=== PATIENT | male | born 1930 | race Caucasian/White ===

== ENCOUNTER 2018-07-12 23:22 | Inpatient (IN) | payer OTHER ==
--- NOTE | 2018-07-12 23:48 | PDOC ---
History of Present Illness - General Stated Complaint: FAILURE TO THRIVE Time Seen by Provider: 07/12/18 23:47 - History of Present Illness Initial Comments: 07/13/18 02:01 The patient is an 88 year old male with a history of Dementia, HTN, Hypothyroid who presents for evaluation of failure to thrive. The patient is accompanied by family who assist in providing the history. They report that the patient has been getting progressively weaker over the past 1 month and over the past few days he has refused to eat or take his medications and become more altered. They note that he has been bedbound for over a month and has developed multiple pressure ulcers as well. They state that he also fell over a week ago but was not evaluated at that time. The patient is non-verbal at baseline and ROS is unobtainable. Past History - Past Medical History Allergies/Adverse Reactions: Allergies Allergy/AdvReac Type Severity Reaction Status Date / Time No Known Allergies Allergy Verified 07/13/18 00:02 Review of Systems - Review of Systems Able to Perform ROS?: No (Dementia) *Physical Exam - Physical Exam Comments: 07/13/18 02:04 General Appearance: Nourished. In Apparent Distress HEENT: No Pharyngeal Erythema, Tonsillar Exudate, Tonsillar Erythema Neck: No Cervical Lymphadenopathy Respiratory/Chest: Lungs Clear, Normal Breath Sounds. No Crackles, Rales, Rhonchi, Wheezing Cardiovascular: Regular Rhythm, Regular Rate. No Murmur, Gallops, Rubs Gastrointestinal/Abdominal: Normal Bowel Sounds, Soft. No Guarding, Rebound, Tenderness Musculoskeletal: No CVA Tenderness Extremity: Multiple pressure ulcers noted on exam to the bilateral hips. Edematous right upper extremity. Normal Capillary Refill Integumentary: Normal Color, Dry, Warm Neurologic: Minimally responsive. Not following commands. ED Treatment Course - LABORATORY CBC & Chemistry Diagram: 07/14/18 07:50 07/14/18 07:50 Medical Decision Making - Medical Decision Making 07/13/18 02:12 The patient is an 88 year old male with a history of Dementia, HTN, Hypothyroid who presents for evaluation of failure to thrive. The patient appears extremely ill on exam and given his history and physical exam, it is likely the patient's symptoms are due to an infectious etiology. We will obtain a cbc, cmp , troponin, ua, chest plain film, blood cultures, lactate, vbg, ekg to evaluate further. We had a discussion with the patient's son Cachorro Quiñones who is the health care proxy over the phone and has made the patient DNR/DNI and no central line or pressors. Dr. Avina was present as second witness to confirm wishes with the health care proxy. They would like to continue iv fluids and antibiotics. We will treat with vanc, zosyn and iv fluids. We will continue to closely monitor and reassess while here in the ED. The patient will likely require admission for further management. The overall prognosis is poor. 07/13/18 05:06 CBC is unremarkable. CMP demonstrates an elevated creatinine. Troponin is elevated to 0.18. Lactate is elevated to 7.5. The patient is liekly septic from his pressure ulcer wounds. Given the patient's overall clinical picture, the prognosis is poor. We will continue to treat with iv fluids and antibiotics. Multiple attempts made to reach the health care proxy with no success to update them on the patient's condition. We discussed the case with the admitting team who accepted the patient for admission. *DC/Admit/Observation/Transfer Diagnosis at time of Disposition: Sepsis Qualifiers: Sepsis type: sepsis due to unspecified organism Qualified Code(s): A41.9 - Sepsis, unspecified organism Cellulitis Qualifiers: Site of cellulitis: unspecified site Qualified Code(s): L03.90 - Cellulitis, unspecified Hypotension Qualifiers: Hypotension type: unspecified hypotension type Qualified Code(s): I95.9 - Hypotension, unspecified - Discharge Dispostion Condition at time of disposition: Stable Decision to Admit order: Yes - Referrals - Patient Instructions - Post Discharge Activity
[2018-07-13 00:01] VITALS: BMI 16.7
[2018-07-13] MEDS ORDERED: VANCOMYCIN 1 GRAM (PRE-DOCKED) 1,000 MG/250 ML BAG IVPB ONE ×2 (01:01→02:06)
[2018-07-13] MEDS ORDERED: PIPERACILLIN/TAZOB 3.375 GM 3.375 GM in DEXTROSE 5%-WATER - 50 ML IVPB ONE (01:02)
--- NOTE | 2018-07-13 01:10 | PDOC ---
Attending Attestation - Resident Resident Name: Isak Stewart - ED Attending Attestation I have performed the following: I have examined & evaluated the patient, The case was reviewed & discussed with the resident, I agree w/resident's findings & plan, Exceptions are as noted - Physicial Exam PE: 07/13/18 01:07 awake dry mucous membranes, lungs clear bilaterally, heart tachycardia, abd soft nt. skin ? large foul smelling necrotic left hip eschar, 5 x 5 inches. right hip ulcer necrotis. right upper ext swollen, edematous, bilat inner knee skin breakdown. nuero, nonverbal, not following commands. - Medical Decision Making 07/13/18 01:09 differential: renal failure, cva, or sepsis from necrotic hip wound, uti pna, electrolyte abnormality anemia. pt is showing signs of septic shock hypotensive. will d/w grandson and son ( not present) via phone regarding goals of care. will treat with broad spectrum abx, and fluid rescusitation. ekg cxr septic dejan. <Charis Avina - Last Filed: 07/13/18 01:06> - HPI HPI: 07/13/18 01:12 The patient is a 88 year old male with a significant PMH of HTN, dementia, and hyperthyroidism who presents to the emergency department with altered mental status. Patient has been bed-bound for the past 4 weeks. Patients grandson is at bedside and brought him in to the ER today for evaluation of generalized weakness, loss of appetite, and not taking his meds for the past week. Patient is non-verbal and not adding any further information. Patients grandson states the patient fell approximately one week ago but was not evaluated for it. Allergies: NKA Past surgical history: None reported. <Azucena Cee - Last Filed: 07/13/18 01:13>
[2018-07-13 01:20] LABS: BASO % 0.1 % (0-2.0); HEMATOCRIT 30.5 % (35.4-49); HEMOGLOBIN 10.5 GM/dL (11.7-16.9); LYMPH % 4.3 % (8-40); MCH 32.8 pg (25.7-33.7); MCHC 34.3 g/dl (32.0-35.9); MEAN CELL VOLUME 95.6 fl (80-96); MEAN PLT VOLUME 8.5 fl (7.5-11.1); MONO % 4.6 % (3.8-10.2); PLATELET COUNT 194 K/MM3 (134-434); RBC 3.19 M/mm3 (4.00-5.60); RDW 15.8 % (11.9-15.9); WHITE BLOOD COUNT 7.5 K/mm3 (4.0-10.0)
[2018-07-13 01:27] LABS: VENOUS PC02 46.3 mmHg (38-52); VENOUS PH 7.38 (7.32-7.42)
[2018-07-13 01:30] LABS: VENOUS PO2 19.9 mmHg (28-48)
[2018-07-13 01:37] LABS: INR 1.19 (0.83-1.09); PROTHROMBIN TIME (PATIENT) 14.1 SEC (9.7-13.0)
[2018-07-13 01:40] LABS: ACTIVATED PTT 27.8 SECONDS (25.2-36.5)
[2018-07-13 01:48] LABS: ALBUMIN 1.9 g/dl (3.4-5.0); ALK PHOS 97 U/L (45-117); ANION GAP 8 MMOL/L (8-16); BLOOD UREA NITROGEN 43 mg/dL (7-18); CALCIUM 7.9 mg/dL (8.5-10.1); CHLORIDE 109 mmol/L (98-107); CO2 27 mmol/L (21-32); GLUCOSE,RANDOM 117 mg/dL (74-106); POTASSIUM 4.8 mmol/L (3.5-5.1); SGOT/AST 120 U/L (15-37); SGPT/ALT 48 U/L (13-61); SODIUM 144 mmol/L (136-145); TOT PROT 5.4 g/dl (6.4-8.2)
[2018-07-13] MEDS ORDERED: PIPERACILLIN/TAZOB 3.375 GM 3.375 GM/50 ML BAG IVPB ONE (02:07)
[2018-07-13] MEDS ORDERED: SODIUM CHLORIDE 0.9% 1000 ML INFUS.BAG IV ONE (03:04)
[2018-07-13] MEDS ORDERED: SODIUM CHLORIDE 1,000 ML IV STA (03:09)
[2018-07-13 03:20] LABS: URINE APPEARANCE SLCLOUDY; URINE BILIRUBIN NEGATIVE (<2.0 mg/dL); URINE COLOR AMBER; URINE GLUCOSE (UA) NEGATIVE (NEGATIVE); URINE KETONE NEGATIVE (NEGATIVE); URINE LEUK ESTERASE NEGATIVE (NEGATIVE); URINE NITRITE NEGATIVE (NEGATIVE); URINE PROTEIN 1+ (NEGATIVE); URINE UROBILINOGEN 4.0 E.U/dl mg/dL (0.2-1.0)
[2018-07-13 03:24] LABS: EPI CELLS RARE /HPF (FEW); URINE BACTERIA FEW /hpf (NONE SEEN); URINE HYALINE CAST 2 /lpf; URINE MUCUS MANY
--- NOTE | 2018-07-13 04:30 | PN ---
Teaching Attending Note Name of Resident: Ryan Delcid ATTENDING PHYSICIAN STATEMENT I saw and evaluated the patient. I reviewed the resident's note and discussed the case with the resident. I agree with the resident's findings and plan as documented. SUBJECTIVE: Patient seen and examined in the ER; please see resident note for further historical documentation. This is an 88 y/o CM with a complex PMH documented as having an inactive pacemaker, dementia, hyperthyroidism, HTN. He arrived in multiorgansystem failure likely arising from septic shock; he was evidenced to be hypothermic, bradycardic, hypotensive, unresponsive. Due to his presentation he was completely unable to provide any meaningful medical history. He was brought in by the grandson who he lives with for what I am told is the past month. Per the run sheet from the ambulance he was unresponsive and had declined and become bedbound and got many pressure ulcers over the past month; I am also informed that he fell a week ago and he was not evaluated for this. I am told that he saw his primary at some point last month ; we will confirm this with the PCP. He had copious diarrhea when I was in the room The ER spoke with the son who is HCP over the phone and he confirmed that the patient was to be made DNR/DNI with no pressors or aggressive measures; he did want the patient treated with antibiotics and fluids. Multiple providers have attempted to call to discuss case with family; awaiting call back from their provided number (will be placed in the chart); the son aparently lives in [place] and is named Cachorro Quiñones. He had issues with IV access during his time in the ER; 1L of fluids was given along with abx and warming. He became tachypnic and desatted and was placed on a nonrebreather; he cannot mentate well enough for a BiPap and it would be catastrophic should he aspirate. Given the degree of his illness I would not be surprised if this patient from medical reasons in the next 24 hours. Couldn't obtain ROS Couldn't adequately confirm any historical information with the patient in regards to past medical, social, surgical, or family history. OBJECTIVE: VS, Labs, Imaging reviewed Severe distress, unresponsive, pursed lip breathin on NRB, cold to touch Multiple abrasions and pressure ulcers; the largest are on his bilateral hips. I will ask for photo documentation to be placed in chart in order to further describe these wounds which appeared to be unstagable decubiti. There is other skin breakdown evident as well . Initially bradycardic and now tachy with HR 120s with SBP 80s. Cool extremities Cachetic, frail, chronically ill Trachea midline, PERRLA, EOMI, Normocephalic Abdomen doesn't have nate hsm; not distended, unable to elucidate if tender but it is soft. Dozier inserted with dark urine draining, normal scrotum and external genitals. Labs reveal lactic acidosis, Cr elevated to 2.0, slightly increased AST, Troponin slightly above baseline, UA with socorro colored urine that doesn't appear infected but with blood, profound hypoalbuminemia ASSESSMENT AND PLAN: Mr. Manriquez presents with multiorgan system failure, lactic acidosis with septic shock likely 2/2 infected decubiti vs. occult source of infection. 1) Lactic Acidosis with Septic Shock leading to Multiorgan System Failure -Presenting with elevated lactate, elevated tropinin, MARIVEL, AST slight elevation (? hypoperfusion); hypotensive and bradycardic (now tachy) -Bolus additional liters as needed as HCP doesn't want pressors, etc. Maintenance at 120/hr of LR -Broad spectrum coverage; source is unclear. Hip wounds were unstagable and cultures have been sent out; diarrhea noted and unknown abx history so treating presumptively for Cdif. Covering with vancomycin and zosyn. Spoke to ICU; please see their consult. Consulting ID. -Very tenuous chance for survival 2) Acute Respiratory Failure -Developed while in the ER; on nonrebreather, ABG pending. He is confirmed as DNI -Given mentation BiPap is contraindicated 3) Altered Mental Status, unresponsive -CT head done; unremarkable prelim report. Has been progressive in the past month with a stated history of dementia. Assuming toxic metabolic encephalopathy. No seizure hx, etc. May benefit from MRI and neuro consultation if he survives this initial insult, but he has an inactive pacemaker and it is unknown if that is compatable or not. 4) Elevated troponin -Likely demand 2/2 #1; will trend and obtain echo to look for WMAs 5) MARIVEL -Assuming hypoperfusion; calculate a FeNa 6) Elevated AST -Trend LFTs; concern for shock liver 7) Hypoalbuminemia -Check prealbumin; given PE suspecting severe malnutrition 8) Failure to thrive -Per #7 9) Dementia -Unknown baseline prior to this month; need to discuss with PCP and family 10) Normocytic Anemia 11) Diarrhea -Unknown cdif risks; will check lactoferrin and cdif; presumptive tx. If negative infectious workup DC metronidazole and can give PRNs for this. 12) Hematuria -Noted; check CPK and r/o rhabdo Code Status
--- NOTE | 2018-07-13 05:08 | PN ---
Progress Note (short form) - Note Progress Note: Called by hospitalist team to evaluate this patient who is in multiorgan failure. Patient is tachycardic hypothermic hypotensive tachypneic to 52 and has multiple decubitus ulcers with eschar. Went to go evaluate patient but ER resident informed me that he spoke to the son and grandson and they want him DNR /DNI no pressors or central line. They only want antibiotics and IVF. Hospitalist team did not know this conversation took place when ICU evaluation was placed. Please call back if family is agreeable to treatment that ICU can offer the patient (ie central line pressors). Poor prognosis without intervention. Patient should be made comfort care given his condition and pain medication should be given titrated to respiratory rate since patient's respiratory rate is extremely high and patient is air hungry and is not a candidate for bipap given he has a poor mental status. Discussed with ER resident and attending. Discussed with medicine attending and residents. Multiple attempts to reach son between 3 different providers (over 10 phone calls) to update son on condition but we were not successful.
--- NOTE | 2018-07-13 05:09 | HP ---
CHIEF COMPLAINT: Lethargy, poor PO intake PCP: HISTORY OF PRESENT ILLNESS: 88 yo male with PMH documented as HTN, Dimentia, Hyperthyroidism, presented to the ED with lethargy. History unable to be received from patient and grandson had left before I evaluated the patient so history limited to chart review and discussion with ED providers. Pt apparently has been bed bound living with his grandson for about 4 weeks. One week ago the pt supposedly had a fall. 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 Over the last week the patient has become more lethargic and was not tolerating PO intake and unable to take any of his medications. Upon evaluation, pt noted to be hypothermic, bradycardic, with hypotension. Pt also had very foul smelling loose stool in his diaper. ED providers had extensive discussion with family who made patient DNR/DNI, no central line, no pressors, but expressed they would like antibiotics and other medical management. ER course was notable for: (1) Vanc/Zosyn (2) 2L NS (3) Hypotension, bradycardia, hypothermia Recent Travel: PAST MEDICAL HISTORY: As above, unable to obtain further history PAST SURGICAL HISTORY: unable to obtain Social History: unable to obtain Family History: Allergies No Known Allergies Allergy (Verified 07/13/18 00:02) HOME MEDICATIONS: REVIEW OF SYSTEMS Unable to obtain PHYSICAL EXAMINATION Vital Signs - 24 hr 07/12/18 23:22 Temperature 96.1 F L Pulse Rate 53 L Respiratory 22 H Rate Blood Pressure 83/54 L O2 Sat by Pulse 100 Oximetry (%) GENERAL: In distress, very cachectic and frail, nonverbal male HEAD: Normocephalic, atraumatic. EARS, NOSE, THROAT: dry mucous membranes. LUNGS: CTA b/l, no crackles or wheezes HEART:Bradycardia initially then became tachycardic, normal S1 and S2 without murmur ABDOMEN: Concave abdomen, soft, nondistended EXTREMITIES: No peripheral edema. NEUROLOGICAL: unresponsive, unable to comply with neuro exam SKIN:Cold to touch, numerous abrasions and areas of skin breakdown Laboratory Results - last 24 hr 07/13/18 07/13/18 07/13/18 00:50 00:50 00:50 WBC 7.5 RBC 3.19 L Hgb 10.5 L Hct 30.5 L MCV 95.6 MCH 32.8 MCHC 34.3 RDW 15.8 Plt Count 194 MPV 8.5 Absolute Neuts (auto) 6.8 Neutrophils % 91.0 H Lymphocytes % 4.3 L Monocytes % 4.6 Eosinophils % 0.0 Basophils % 0.1 Nucleated RBC % 0 PT with INR 14.10 H INR 1.19 H PTT (Actin FS) 27.8 VBG pH 7.38 POC VBG pCO2 46.3 POC VBG pO2 19.9 L* Mixed VBG HCO3 26.7 H Sodium Potassium Chloride Carbon Dioxide Anion Gap BUN Creatinine Creat Clearance w eGFR Random Glucose Lactic Acid Calcium Total Bilirubin AST ALT Alkaline Phosphatase Troponin I Total Protein Albumin Urine Color Urine Appearance Urine pH Ur Specific [place] Urine Protein Urine Glucose (UA) Urine Ketones Urine Blood Urine Nitrite Urine Bilirubin Urine Urobilinogen Ur Leukocyte Esterase Urine WBC (Auto) Urine RBC (Auto) Ur Epithelial Cells Urine Bacteria Hyaline Casts Urine Mucus 07/13/18 07/13/18 07/13/18 00:50 00:50 02:30 WBC RBC Hgb Hct MCV MCH MCHC RDW Plt Count MPV Absolute Neuts (auto) Neutrophils % Lymphocytes % Monocytes % Eosinophils % Basophils % Nucleated RBC % PT with INR INR PTT (Actin FS) VBG pH POC VBG pCO2 POC VBG pO2 Mixed VBG HCO3 Sodium 144 Potassium 4.8 Chloride 109 H Carbon Dioxide 27 Anion Gap 8 BUN 43 H Creatinine 2.0 H Creat Clearance w eGFR 31.84 Random Glucose 117 H Lactic Acid 3.3 H* 3.5 H* Calcium 7.9 L Total Bilirubin 1.0 AST 120 H ALT 48 Alkaline Phosphatase 97 Troponin I Total Protein 5.4 L Albumin 1.9 L Urine Color Urine Appearance Urine pH Ur Specific [place] Urine Protein Urine Glucose (UA) Urine Ketones Urine Blood Urine Nitrite Urine Bilirubin Urine Urobilinogen Ur Leukocyte Esterase Urine WBC (Auto) Urine RBC (Auto) Ur Epithelial Cells Urine Bacteria Hyaline Casts Urine Mucus 07/13/18 07/13/18 02:32 03:05 WBC RBC Hgb Hct MCV MCH MCHC RDW Plt Count MPV Absolute Neuts (auto) Neutrophils % Lymphocytes % Monocytes % Eosinophils % Basophils % Nucleated RBC % PT with INR INR PTT (Actin FS) VBG pH POC VBG pCO2 POC VBG pO2 Mixed VBG HCO3 Sodium Potassium Chloride Carbon Dioxide Anion Gap BUN Creatinine Creat Clearance w eGFR Random Glucose Lactic Acid Calcium Total Bilirubin AST ALT Alkaline Phosphatase Troponin I 0.18 H Total Protein Albumin Urine Color Jennifer Urine Appearance Slcloudy Urine pH 5.0 Ur Specific [place] 1.025 Urine Protein 1+ H Urine Glucose (UA) Negative Urine Ketones Negative Urine Blood 2+ H Urine Nitrite Negative Urine Bilirubin Negative Urine Urobilinogen 4.0 e.u/dl Ur Leukocyte Esterase Negative Urine WBC (Auto) 3 Urine RBC (Auto) <1 Ur Epithelial Cells Rare Urine Bacteria Few Hyaline Casts 2 Urine Mucus Many ASSESSMENT/PLAN: 88 yo male with PMH documented as HTN, Dimentia, Hyperthyroidism, presented to the ED with lethargy. Septic Shock with Multiorgan System Failure and Lactic Acidosis -Likely secondary to worsening infection of b/l hip wounds -Vanc/Zosyn, broad coverage as true source unable to be identified at this time -Fluid boluses for bp maintenance -Consulted ICU and ID as family wants continued management other than expressed DNR/DNI/No central acces or pressors -Prognosis is very poor -Attempted further contact with HCP, unable to reach after multiple attempts Acute Respiratory Failure -Increased work of breathing, became very tachypnic in the ED -Nonbrebreather, DNI as per family -ABG pending Dimentia and Unresponsiveness -unresponsiveness and lethargy likely 2/2 Septic and multisystem organ failure as above MARIVEL -likely secondary to hypoperfusion -Bolus fluids as needed to maintain b.p and adequately perfuse organs Elevated AST -Could be secondary to hypoperfusion, trend LFTs Hypoalbuminemia -Likely secondary to severe malnutrition Diarrhea -foul smelling, will check for C. dif Prognosis very poor Code status, DNR/DNI,No pressors or Central access Visit type - Emergency Visit Emergency Visit: Yes ED Registration Date: 07/13/18 Care time: The patient presented to the Emergency Department on the above date and was hospitalized for further evaluation of their emergent condition. - New Patient This patient is new to me today: Yes Date on this admission: 07/13/18 - Critical Care Critical Care patient: Yes Total Critical Care Time (in minutes): 50 Critical Care Statement: The care of this patient involved high complexity decision making to prevent further life threatening deterioration of the patient 's condition and/or to evaluate & treat vital organ system(s) failure or risk of failure.
[2018-07-13] MEDS ORDERED: morphine CARPU-JECT 2 MG/1 ML DISP.SYRIN IVPUSH ONE (05:34)
[2018-07-13 06:38] LABS: BASO % 0.2 % (0-2.0); HEMOGLOBIN 10.4 GM/dL (11.7-16.9); LYMPH % 6.9 % (8-40); MCH 31.5 pg (25.7-33.7); MCHC 32.5 g/dl (32.0-35.9); MEAN CELL VOLUME 96.8 fl (80-96); MEAN PLT VOLUME 8.4 fl (7.5-11.1); MONO % 3.6 % (3.8-10.2); NEUT % 89.3 % (42.8-82.8); PLATELET COUNT 163 K/MM3 (134-434); WHITE BLOOD COUNT 4.1 K/mm3 (4.0-10.0)
[2018-07-13 07:19] LABS: ALBUMIN 1.9 g/dl (3.4-5.0); ALK PHOS 98 U/L (45-117); ANION GAP 14 MMOL/L (8-16); BILIRUBIN,TOTAL 1.4 mg/dL (0.2-1); BLOOD UREA NITROGEN 46 mg/dL (7-18); CHLORIDE 110 mmol/L (98-107); CO2 20 mmol/L (21-32); CREATININE 2.3 mg/dL (0.55-1.3); GLUCOSE,RANDOM 121 mg/dL (74-106); POTASSIUM 5.2 mmol/L (3.5-5.1); SGOT/AST 140 U/L (15-37); SGPT/ALT 49 U/L (13-61); SODIUM 144 mmol/L (136-145); TOT PROT 5.5 g/dl (6.4-8.2)
[2018-07-13] MEDS ORDERED: MORPHINE SULFATE 2 MG/ML VIAL IVPUSH PRN ×2 (08:44→20:34)
[2018-07-13] MEDS ORDERED: MORPHINE SULFATE 2 MG/ML VIAL ONE (09:38)
[2018-07-13] MEDS ORDERED: PIPERACILLIN/TAZOB 4.5 GM 4.5 GM in DEXTROSE 5%-WATER 100 ML IVPB ONE (10:00)
[2018-07-13] MEDS ORDERED: PANTOPRAZOLE SODIUM 40 MG VIAL IVPUSH SCH (10:00)
[2018-07-13] MEDS ORDERED: PIPERACILLIN/TAZOB 4.5 GM 4.5 GM in DEXTROSE 5%-WATER 100 ML IVPB SCH (10:00)
[2018-07-13] MEDS ORDERED: HEPARIN NA (PORCINE) 5,000 UNITS/ML 1ML VIAL SQ SCH (10:00)
--- NOTE | 2018-07-13 10:07 | PN ---
Progress Note (short form) - Note Progress Note: Full note pending. Patient seen by Dr Poole in the outpatient setting. Confirmed that grandson Pablito [phone] is the one who brings patient into the office. Spoke with Pablito about prognosis, confirms that patient is DNR/DNI and would not want to suffer. Call also placed to son Cachorro Quiñones and message left as well. Awaiting call back.
--- NOTE | 2018-07-13 12:36 | PN ---
Progress Note, Physician Chief Complaint: Obtunded - Current Medication List Current Medications: Active Medications Heparin Sodium (Porcine) (Heparin -) 5,000 unit SQ BID [facility] Last Admin: 07/13/18 09:41 Dose: 5,000 unit Metronidazole (Flagyl 500mg Premixed Ivpb -) 500 mg in 100 mls @ 100 mls/hr IVPB Q8H-IV [facility] Last Admin: 07/13/18 10:55 Dose: 100 mls/hr Vancomycin HCl (Vancomycin (Pre-Docked)) 1,000 mg in 250 mls @ 166.667 mls/hr IVPB DAILY@0200 [facility]; Protocol Piperacillin Sod/Tazobactam (Sod 4.5 gm/ Dextrose) 100 mls @ 200 mls/hr IVPB BID [facility]; Protocol Morphine Sulfate (Morphine Sulfate) 1 mg IVPUSH Q1H PRN PRN Reason: PAIN LEVEL 6-10 Last Admin: 07/13/18 09:43 Dose: 1 mg Pantoprazole Sodium (Protonix Iv) 40 mg IVPUSH DAILY [facility] Last Admin: 07/13/18 09:43 Dose: 40 mg - Objective Vital Signs: Vital Signs Temperature 37.7 C H 07/13/18 08:25 Pulse Rate 117 H 07/13/18 08:25 Respiratory Rate 40 H 07/13/18 08:25 Blood Pressure 111/99 07/13/18 08:25 O2 Sat by Pulse Oximetry (%) 100 07/13/18 00:02 Constitutional: Yes: Thin, Other (obtunded) Cardiovascular: Yes: Tachycardia. No: Regular Rate and Rhythm, Pulse Irregular , Gallop, Murmur, Rub Respiratory: Yes: On Venti-Mask, Rales, Tachypnea. No: Regular, CTA Bilaterally , Wheezes Gastrointestinal: Yes: Normal Bowel Sounds, Soft. No: Distention, Tenderness Extremities: Yes: Other (decubitus ulceration noted) Edema: No Labs: CBC, BMP 07/13/18 05:52 07/13/18 05:52 INR, PTT INR 1.19 (0.83-1.09) H 07/13/18 00:50 Problem List - Problems (1) Septic shock Assessment/Plan: -as evidenced by renal, pulmonary failure, hypotension, lactic acidosis -possible GI source -possible skin infection -case d/w son overnight and grandson today -antibiotics only -appreciate ID assistance -will add prn morphine for comfort -very poor prognosis Code(s): A41.9 - SEPSIS, UNSPECIFIED ORGANISM; R65.21 - SEVERE SEPSIS WITH SEPTIC SHOCK (2) MARIVEL (acute kidney injury) Assessment/Plan: -no IVF per family Code(s): N17.9 - ACUTE KIDNEY FAILURE, UNSPECIFIED (3) Troponin level elevated Assessment/Plan: -stress induced Code(s): R74.8 - ABNORMAL LEVELS OF OTHER SERUM ENZYMES (4) Diarrhea Assessment/Plan: -continue flagyl for possible c diff diarrhea -with lactic acid of 7.5, possible necrosis Code(s): R19.7 - DIARRHEA, UNSPECIFIED (5) Lactic acid acidosis Assessment/Plan: -continue antibiotics Code(s): E87.2 - ACIDOSIS (6) Acute respiratory failure with hypoxia Assessment/Plan: -continue NRB -morphine for comfort Code(s): J96.01 - ACUTE RESPIRATORY FAILURE WITH HYPOXIA
[2018-07-13 13:02] LABS: ACANTHOCYTES 1+; ANISOCYTOSIS 2+; MACROCYTOSIS 0; OVALOCYTE 1+; PLATELET ESTIMATE NORMAL
--- NOTE | 2018-07-13 13:50 | PN ---
Teaching Attending Note Name of Resident: Natalio Lagunas ATTENDING PHYSICIAN STATEMENT I saw and evaluated the patient. I reviewed the resident's note and discussed the case with the resident. I agree with the resident's findings and plan as documented. SUBJECTIVE: Pt seen and examined in the ER. Briefly, 88yo male with h/o HTN, hyperthyroidism , dementia, bedbound with multiple decubitus ulcers who presents with altered mental status, increasing lethargy and decreasing PO intake. Found to be hypothermic, hypotensive and bradycardic. Noted to have diarrhea while in the ER. Discussions with family concluding with conservative management including IVF and medications but no aggressive measures. Pt unable to provide further history at this time. OBJECTIVE: Vital Signs Period Temp Pulse Resp BP Sys/Marroquin Pulse Ox Last 24 Hr 96.1 F-100 F 53-117 22-40 83-111/54-99 100-100 Intake & Output 07/10/18 07/11/18 07/12/18 07/13/18 23:59 23:59 23:59 23:59 Output Total 120 Balance -120 Weight 49.895 kg Gen: lethargic, tachypneic at rest, cachectic Heart: tachycardic, regular Lung:distant breath sounds Abd: soft, ulcer RUQ Ext: no edema CBC, BMP 07/13/18 05:52 07/13/18 05:52 Active Medications Heparin Sodium (Porcine) (Heparin -) 5,000 unit SQ BID [facility] Last Admin: 07/13/18 09:41 Dose: 5,000 unit Metronidazole (Flagyl 500mg Premixed Ivpb -) 500 mg in 100 mls @ 100 mls/hr IVPB Q8H-IV [facility] Last Admin: 07/13/18 10:55 Dose: 100 mls/hr Vancomycin HCl (Vancomycin (Pre-Docked)) 1,000 mg in 250 mls @ 166.667 mls/hr IVPB DAILY@0200 [facility]; Protocol Piperacillin Sod/Tazobactam (Sod 4.5 gm/ Dextrose) 100 mls @ 200 mls/hr IVPB BID [facility]; Protocol Morphine Sulfate (Morphine Sulfate) 1 mg IVPUSH Q1H PRN PRN Reason: PAIN LEVEL 6-10 Last Admin: 07/13/18 09:43 Dose: 1 mg Pantoprazole Sodium (Protonix Iv) 40 mg IVPUSH DAILY [facility] Last Admin: 07/13/18 09:43 Dose: 40 mg ASSESSMENT AND PLAN: Severe Sepsis Decubitus Ulcer Infection r/o Colitis Acute Kidney Injury Lactic Acidosis Hyperkalemia +Troponins likely Demand Ischemia Rhabdomyolysis Anemia Dementia Severe Protein Calorie Malnutrition - IVF - antibiotics per ID - f/u cultures - stool for C diff - O2 to keep Spo2 >90% - aspiration precautions - trend CPK - monitor urine output, creatinine - morphine for comfort - agree with conservative management - pt DNR/DNI
--- NOTE | 2018-07-13 14:22 | CON.ID ---
Consult Consult Specialty:: infectious diseases Referred by:: Dr quevedo Reason for Consultation:: sepsis,ams,fall - History of Present Illness History of Present Illness: 88 yo male with PMH documented as HTN, Dimentia, Hyperthyroidism, presented to the ED with lethargy. History unable to be received from patient and grandson had left before I evaluated the patient so history limited to chart review and discussion with ED providers. Pt apparently has been bed bound living with his grandson for about 4 weeks. One week ago the pt supposedly had a fall. 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 Over the last week the patient has become more lethargic and was not tolerating PO intake and unable to take any of his medications. Upon evaluation, pt noted to be hypothermic, bradycardic, with hypotension. Pt also had very foul smelling loose stool in his diaper. ED providers had extensive discussion with family who made patient DNR/DNI, no central line, no pressors, but expressed they would like antibiotics and other medical management. patient also had imaging studies done - History Source History Provided By: Medical Record Limitations to Obtaining History: Clinical Condition - Alcohol/Substance Use Hx Alcohol Use: No - Smoking History Smoking history: Never smoked Have you smoked in the past 12 months: No Home Medications - Allergies Allergies/Adverse Reactions: Allergies Allergy/AdvReac Type Severity Reaction Status Date / Time No Known Allergies Allergy Verified 07/13/18 00:02 Review of Systems Unable to obtain ROS, reason: unable to obtain Physical Exam Vital Signs: Vital Signs Temperature 100 F H 07/13/18 08:25 Pulse Rate 117 H 07/13/18 08:25 Respiratory Rate 40 H 07/13/18 08:25 Blood Pressure 111/99 07/13/18 08:25 O2 Sat by Pulse Oximetry (%) 100 07/13/18 00:02 Constitutional: Yes: Other (failure to thrive) Eyes: Yes: Conjunctiva Clear Cardiovascular: Yes: Regular Rate and Rhythm Respiratory: Yes: Poor Air Entry, Other Gastrointestinal: Yes: Normal Bowel Sounds, Soft Musculoskeletal: Yes: Other Extremities: Yes: Other Wound/Incision: Yes: Other (multiple skin break down,wounds,abrasions) Neurological: Yes: Other Psychiatric: Yes: Other Labs: CBC, BMP 07/13/18 05:52 07/13/18 05:52 Imaging - Results Chest X-ray: Report Reviewed, Image Reviewed Cat Scan: Report Reviewed, Image Reviewed Assessment/Plan Problem List - Problems (1) Septic shock Code(s): A41.9 - SEPSIS, UNSPECIFIED ORGANISM; R65.21 - SEVERE SEPSIS WITH SEPTIC SHOCK (2) MARIVEL (acute kidney injury) Code(s): N17.9 - ACUTE KIDNEY FAILURE, UNSPECIFIED (3) Troponin level elevated Code(s): R74.8 - ABNORMAL LEVELS OF OTHER SERUM ENZYMES (4) Diarrhea Code(s): R19.7 - DIARRHEA, UNSPECIFIED (5) Lactic acid acidosis Code(s): E87.2 - ACIDOSIS (6) Acute respiratory failure with hypoxia Code(s): J96.01 - ACUTE RESPIRATORY FAILURE WITH HYPOXIA plan patient has got broad spectrum abx continue them also continue flagyl hydration await for all cx reports rest as per the team
[2018-07-13 14:54] LABS: ANISOCYTOSIS 0; MACROCYTOSIS 0; OVALOCYTE 2+; PLATELET ESTIMATE NORMAL
--- NOTE | 2018-07-13 15:47 | ECHO ---
Name: TANIKA FELIX Exam:Adult Echocardiogram Study Date: 07/13/2018 11:34 AM Age: 88 yrs Reason For Study: ELEVATED TROPONIN Height: 68 in Weight: 110 lb BSA: 1.6 m2 BP: 95/61 mmHg MMode/2D Measurements & Calculations IVSd: 1.0 cm Ao root diam: 3.8 cm LVIDd: 5.0 cm LA dimension: 3.3 cm LVIDs: 4.1 cm LVPWd: 0.93 cm EDV(Teich): 120.2 ml ESV(Teich): 74.0 ml Doppler Measurements & Calculations AI P1/2t: 449.2 msec AI max surya: 276.9 cm/sec AI max P.7 mmHg AI dec slope: 180.6 cm/sec2 MR max surya: 217.2 cm/sec TR max surya: 228.0 cm/sec MR max P.9 mmHg TR max P.8 mmHg Med Peak E' Surya: 6.4 cm/sec Lat Peak E' Surya: 11.0 cm/sec Procedure A two-dimensional transthoracic echocardiogram with color flow and Doppler was performed. The study w as technically difficult with many images being suboptimal in quality. Left Ventricle The left ventricle is grossly normal size. Left ventricular systolic function is severely reduced. Th ere is septal wall akinesis. There is moderate to severe anterior wall hypokinesis. There is apical akinesis . There is apical septal wall akinesis. There is moderate to severe global hypokinesis of the left ventricle. Right Ventricle The right ventricle is not well visualized. 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 Atria Normal left and right atrial size and function. Mitral Valve There is mild to moderate mitral valve thickening. There is no mitral valve stenosis. There is mild t o moderate mitral regurgitation. Tricuspid Valve There is mild tricuspid valve thickening. There is no tricuspid stenosis. There is mild tricuspid regurgitation. Right ventricular systolic pressure is normal. Aortic Valve The aortic valve is not well visualized. No hemodynamically significant valvular aortic stenosis. Mil d to moderate aortic regurgitation. Pulmonic Valve The pulmonic valve is not well visualized. Great Vessels The aortic root is normal size. Pericardium/Pleura There is no pericardial effusion. Interpretation Summary The study was technically difficult with many images being suboptimal in quality. The left ventricle is grossly normal size. 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 Left ventricular systolic function is severely reduced. There is septal wall akinesis. There is moderate to severe anterior wall hypokinesis. There is apical akinesis. There is apical septal wall akinesis. There is mild tricuspid regurgitation. Right ventricular systolic pressure is normal. There is mild to moderate mitral regurgitation. Mild to moderate aortic regurgitation. There is moderate to severe global hypokinesis of the left ventricle. MD Burt Peng 07/13/2018 03:47 PM
[2018-07-13] MEDS ORDERED: PIPERACILLIN/TAZOB 2.25 GM 2.25 GM in DEXTROSE 5%-WATER - 50 ML IVPB SCH (18:00)
[2018-07-14] MEDS ORDERED: PIPERACILLIN/TAZOBACTAM 2.25 GM VIAL IVPB ONE ×2 (01:35→09:00)
[2018-07-14] MEDS ORDERED: DEXTROSE 5%-WATER - 50 ML IVPB ONE ×2 (01:36→09:00)
[2018-07-14] MEDS: HEPARIN NA (PORCINE) 5,000 UNITS/ML 1ML VIAL SQ SCH ×2 (01:39→11:13)
[2018-07-14] MEDS: PIPERACILLIN/TAZOB 2.25 GM 2.25 GM in DEXTROSE 5%-WATER - 50 ML IVPB SCH ×2 (01:39→09:24)
[2018-07-14] MEDS ORDERED: VANCOMYCIN 1 GRAM (PRE-DOCKED) 1,000 MG/250 ML BAG IVPB SCH (02:00)
[2018-07-14 08:13] LABS: BASO % 0.2 % (0-2.0); EOS % 0.2 % (0-4.5); HEMATOCRIT 27.9 % (35.4-49); HEMOGLOBIN 8.8 GM/dL (11.7-16.9); LYMPH % 6.8 % (8-40); MCH 30.2 pg (25.7-33.7); MCHC 31.7 g/dl (32.0-35.9); MEAN CELL VOLUME 95.4 fl (80-96); MEAN PLT VOLUME 9.3 fl (7.5-11.1); MONO % 5.8 % (3.8-10.2); PLATELET COUNT 106 K/MM3 (134-434); RBC 2.93 M/mm3 (4.00-5.60); RDW 16.1 % (11.9-15.9)
[2018-07-14 08:53] LABS: ANION GAP 10 MMOL/L (8-16); BLOOD UREA NITROGEN 67 mg/dL (7-18); CALCIUM 7.5 mg/dL (8.5-10.1); CHLORIDE 116 mmol/L (98-107); CO2 23 mmol/L (21-32); CREATININE 2.3 mg/dL (0.55-1.3); GLUCOSE,RANDOM 104 mg/dL (74-106); MAGNESIUM 2.3 mg/dL (1.8-2.4); PHOSPHOROUS 4.1 mg/dL (2.5-4.9); POTASSIUM 4.4 mmol/L (3.5-5.1); SODIUM 149 mmol/L (136-145)
--- NOTE | 2018-07-14 11:33 | PN ---
Progress Note, Physician Chief Complaint: Obtunded - Current Medication List Current Medications: Active Medications Haloperidol (Haldol Injection (Fast Acting) -) 2 mg IM Q4H PRN PRN Reason: AGITATION Morphine Sulfate 100 mg/ (Sodium Chloride) 100 mls @ 0.5 mls/hr IVPB TITR SAMMY; Protocol Lorazepam (Ativan Injection -) 1 mg IVPUSH Q4H PRN PRN Reason: AGITATION Pantoprazole Sodium (Protonix Iv) 40 mg IVPUSH DAILY SAMMY Scopolamine HBr (Transderm-Scop -) 1 patch TD Q72H SAMMY - Objective Vital Signs: Vital Signs Temperature 37.9 C H 07/14/18 10:00 Pulse Rate 93 H 07/14/18 10:00 Respiratory Rate 32 H 07/14/18 10:00 Blood Pressure 84/46 L 07/14/18 10:00 O2 Sat by Pulse Oximetry (%) 98 07/13/18 22:30 Constitutional: Yes: Thin, Other (obtunded) Cardiovascular: Yes: Tachycardia. No: Pulse Irregular, Gallop, Murmur Respiratory: Yes: Diminished, On Venti-Mask, Rhonchi, Tachypnea, Other (shallow) . No: Regular, CTA Bilaterally, Rales, Wheezes Gastrointestinal: Yes: Normal Bowel Sounds, Soft. No: Distention, Tenderness Extremities: Yes: WNL Edema: No Labs: CBC, BMP 07/14/18 07:50 07/14/18 07:50 INR, PTT INR 1.19 (0.83-1.09) H 07/13/18 00:50 Problem List - Problems (1) Septic shock Code(s): A41.9 - SEPSIS, UNSPECIFIED ORGANISM; R65.21 - SEVERE SEPSIS WITH SEPTIC SHOCK (2) MARIVEL (acute kidney injury) Code(s): N17.9 - ACUTE KIDNEY FAILURE, UNSPECIFIED (3) Troponin level elevated Code(s): R74.8 - ABNORMAL LEVELS OF OTHER SERUM ENZYMES (4) Diarrhea Code(s): R19.7 - DIARRHEA, UNSPECIFIED (5) Lactic acid acidosis Code(s): E87.2 - ACIDOSIS (6) Acute respiratory failure with hypoxia Code(s): J96.01 - ACUTE RESPIRATORY FAILURE WITH HYPOXIA Assessment/Plan (1) Septic shock Code(s): A41.9 - SEPSIS, UNSPECIFIED ORGANISM; R65.21 - SEVERE SEPSIS WITH SEPTIC SHOCK (2) MARIVEL (acute kidney injury) Code(s): N17.9 - ACUTE KIDNEY FAILURE, UNSPECIFIED (3) Troponin level elevated Code(s): R74.8 - ABNORMAL LEVELS OF OTHER SERUM ENZYMES (4) Diarrhea Code(s): R19.7 - DIARRHEA, UNSPECIFIED (5) Lactic acid acidosis Code(s): E87.2 - ACIDOSIS (6) Acute respiratory failure with hypoxia Code(s): J96.01 - ACUTE RESPIRATORY FAILURE WITH HYPOXIA Plan -case d/w family today -at this point antibiotics are extending quantity but not quality -after d/w family, will transition to comfort measures -stop IV antibiotics -start morphine gtt, 0.5mg/hr and titrate as needed -scopolamine patch -prn ativan and haldol -oxygen for comfort
[2018-07-14 11:40] LABS: ANISOCYTOSIS 1+; MACROCYTOSIS 1+
--- NOTE | 2018-07-14 11:44 | PN ---
Progress Note (short form) - Note Progress Note: Poorly responsive. Tachypneic and febrile. DNR / DNI. Intake & Output 07/11/18 07/12/18 07/13/18 07/14/18 23:59 23:59 23:59 23:59 Intake Total 250 150 Output Total 120 300 Balance 130 -150 Weight 110 lb Last Vital Signs Temp Pulse Resp BP Pulse Ox 100.2 F H 93 H 32 H 84/46 L 98 07/14/18 10:00 07/14/18 10:00 07/14/18 10:00 07/14/18 10:00 07/13/18 22:30 Active Medications Haloperidol (Haldol Injection (Fast Acting) -) 2 mg IM Q4H PRN PRN Reason: AGITATION Morphine Sulfate 100 mg/ (Sodium Chloride) 100 mls @ 0.5 mls/hr IVPB TITR SAMMY; Protocol Lorazepam (Ativan Injection -) 1 mg IVPUSH Q4H PRN PRN Reason: AGITATION Pantoprazole Sodium (Protonix Iv) 40 mg IVPUSH DAILY SAMMY Scopolamine HBr (Transderm-Scop -) 1 patch TD Q72H SAMMY Gen: poorly responsive, tachypneic, cachectic Heart: tachycardic, regular Lung:bilateral rhonchi, distant breath sounds Abd: soft, ulcer RUQ Ext: no edema Laboratory Results - last 24 hr 07/13/18 07/13/18 07/13/18 00:50 05:52 08:15 WBC RBC Hgb Hct MCV MCH MCHC RDW Plt Count MPV Absolute Neuts (auto) Neutrophils % Neutrophils % (Manual) 77.8 61.0 Band Neutrophils % 15.2 21.0 Lymphocytes % Lymphocytes % (Manual) 5.0 L 8.0 Monocytes % Monocytes % (Manual) 2 L 2 L Eosinophils % Eosinophils % (Manual) 0.0 0.0 Basophils % Basophils % (Manual) 0.0 0.0 Myelocytes % (Man) 0 0 Promyelocytes % (Man) 0 0 Blast Cells % (Manual) 0 0 Nucleated RBC % Metamyelocytes 0 8 H D Hypochromia 0 0 Platelet Estimate Normal Normal Platelet Comment Present Polychromasia 1+ 1+ Poikilocytosis 2+ 2+ Anisocytosis 0 2+ Microcytosis 0 2+ Macrocytosis 0 0 Spherocytes 1+ 1+ Ovalocytes 2+ 1+ Hitchins Cells 2+ 2+ Acanthocytes (Spur) 1+ ESR 50 H Sodium Potassium Chloride Carbon Dioxide Anion Gap BUN Creatinine Creat Clearance w eGFR Random Glucose Calcium Phosphorus Magnesium Creatine Kinase Creatine Kinase Index CK-MB (CK-2) Troponin I 07/13/18 07/14/18 07/14/18 21:00 07:50 07:50 WBC 4.0 RBC 2.93 L Hgb 8.8 L Hct 27.9 L MCV 95.4 MCH 30.2 MCHC 31.7 L RDW 16.1 H Plt Count 106 L D MPV 9.3 D Absolute Neuts (auto) 3.5 Neutrophils % 87.0 H Neutrophils % (Manual) 84.0 H D Band Neutrophils % 1.0 Lymphocytes % 6.8 L Lymphocytes % (Manual) 7.0 L Monocytes % 5.8 Monocytes % (Manual) 7 D Eosinophils % 0.2 D Eosinophils % (Manual) 0.0 Basophils % 0.2 Basophils % (Manual) 0.0 Myelocytes % (Man) 0 Promyelocytes % (Man) 0 Blast Cells % (Manual) 0 Nucleated RBC % 0 Metamyelocytes 1 D Hypochromia Platelet Estimate Platelet Comment Polychromasia Poikilocytosis Anisocytosis 1+ Microcytosis Macrocytosis 1+ Spherocytes Ovalocytes Prashant Cells Acanthocytes (Spur) ESR Sodium 149 H Potassium 4.4 Chloride 116 H Carbon Dioxide 23 Anion Gap 10 BUN 67 H Creatinine 2.3 H Creat Clearance w eGFR 27.10 Random Glucose 104 Calcium 7.5 L Phosphorus 4.1 Magnesium 2.3 Creatine Kinase 2730 H Creatine Kinase Index 0.2 CK-MB (CK-2) 6.0 H Troponin I 0.37 H ASSESSMENT AND PLAN: Severe Sepsis Decubitus Ulcer Infection r/o Colitis Acute Kidney Injury Lactic Acidosis Hyperkalemia +Troponins likely Demand Ischemia Rhabdomyolysis Anemia Dementia Severe Protein Calorie Malnutrition - antibiotics per ID - stool for C diff - O2 to keep Spo2 >90% - aspiration precautions - morphine for comfort - DNR/DNI - Goal at this point should be comfort care Dr Goode
[2018-07-14] MEDS ORDERED: HALOPERIDOL LACTATE 5 MG/ML IM PRN (11:59)
[2018-07-14] MEDS: PANTOPRAZOLE SODIUM 40 MG VIAL IVPUSH SCH (12:13)
[2018-07-14] MEDS ORDERED: PT OWN MED DRAWER 7, Y5N ONE (13:17)
--- NOTE | 2018-07-14 13:56 | PN ---
Progress Note, Physician History of Present Illness: febrile,not responsive - Current Medication List Current Medications: Active Medications Haloperidol (Haldol Injection (Fast Acting) -) 2 mg IM Q4H PRN PRN Reason: AGITATION Morphine Sulfate 100 mg/ (Sodium Chloride) 100 mls @ 0.5 mls/hr IVPB TITR SAMMY; Protocol Lorazepam (Ativan Injection -) 1 mg IVPUSH Q4H PRN PRN Reason: AGITATION Pantoprazole Sodium (Protonix Iv) 40 mg IVPUSH DAILY SAMMY Last Admin: 07/14/18 12:13 Dose: 40 mg Scopolamine HBr (Transderm-Scop -) 1 patch TD Q72H SAMMY - Objective Vital Signs: Vital Signs Temperature 100.2 F H 07/14/18 10:00 Pulse Rate 93 H 07/14/18 10:00 Respiratory Rate 32 H 07/14/18 10:00 Blood Pressure 84/46 L 07/14/18 10:00 O2 Sat by Pulse Oximetry (%) 98 07/13/18 22:30 Constitutional: Yes: Other (failure to thrive cahectic) HENT: Yes: Other Cardiovascular: Yes: Regular Rate and Rhythm Respiratory: Yes: Tachypnea Gastrointestinal: Yes: Normal Bowel Sounds, Soft Musculoskeletal: Yes: WNL Extremities: Yes: Other Wound/Incision: Yes: Other Neurological: Yes: Other (not responsive) Psychiatric: Yes: Other Labs: CBC, BMP 07/14/18 07:50 07/14/18 07:50 INR, PTT INR 1.19 (0.83-1.09) H 07/13/18 00:50 Assessment/Plan Problem List - Problems (1) Septic shock Code(s): A41.9 - SEPSIS, UNSPECIFIED ORGANISM; R65.21 - SEVERE SEPSIS WITH SEPTIC SHOCK (2) MARIVEL (acute kidney injury) Code(s): N17.9 - ACUTE KIDNEY FAILURE, UNSPECIFIED (3) Troponin level elevated Code(s): R74.8 - ABNORMAL LEVELS OF OTHER SERUM ENZYMES (4) Diarrhea Code(s): R19.7 - DIARRHEA, UNSPECIFIED (5) Lactic acid acidosis Code(s): E87.2 - ACIDOSIS (6) Acute respiratory failure with hypoxia Code(s): J96.01 - ACUTE RESPIRATORY FAILURE WITH HYPOXIA plan continue abx iv fluids stool for cdiff rest as per the team nutrition
[2018-07-14] MEDS: MORPHINE 100 MG in SODIUM CHLORIDE 98 ML IVPB SCH (14:25)
[2018-07-14] MEDS: SCOPOLAMINE HYDROBROMIDE 1 PATCH PATCH.TD72 TD SCH (14:37)
--- NOTE | 2018-07-15 11:38 | PN ---
Progress Note, Physician Chief Complaint: Obtunded - Current Medication List Current Medications: Active Medications Haloperidol (Haldol Injection (Fast Acting) -) 2 mg IM Q4H PRN PRN Reason: AGITATION Morphine Sulfate 100 mg/ (Sodium Chloride) 100 mls @ 0.5 mls/hr IVPB TITR SAMMY; Protocol Last Admin: 07/14/18 14:25 Dose: 0.5 mg/hr, 0.5 mls/hr Lorazepam (Ativan Injection -) 1 mg IVPUSH Q4H PRN PRN Reason: AGITATION Pantoprazole Sodium (Protonix Iv) 40 mg IVPUSH DAILY [facility] Last Admin: 07/14/18 12:13 Dose: 40 mg Scopolamine HBr (Transderm-Scop -) 1 patch TD Q72H [facility] Last Admin: 07/14/18 14:37 Dose: 1 patch - Objective Vital Signs: Vital Signs Temperature 36.6 C 07/15/18 06:00 Pulse Rate 103 H 07/15/18 06:00 Respiratory Rate 23 H 07/15/18 06:00 Blood Pressure 85/42 L 07/15/18 06:00 O2 Sat by Pulse Oximetry (%) 99 07/14/18 21:00 Constitutional: Yes: Other (obtunded, comfortable) Respiratory: Yes: Tachypnea, Other (shallow) Labs: CBC, BMP 07/14/18 07:50 07/14/18 07:50 INR, PTT INR 1.19 (0.83-1.09) H 07/13/18 00:50 Problem List - Problems (1) Septic shock Code(s): A41.9 - SEPSIS, UNSPECIFIED ORGANISM; R65.21 - SEVERE SEPSIS WITH SEPTIC SHOCK (2) MARIVEL (acute kidney injury) Code(s): N17.9 - ACUTE KIDNEY FAILURE, UNSPECIFIED (3) Troponin level elevated Code(s): R74.8 - ABNORMAL LEVELS OF OTHER SERUM ENZYMES (4) Diarrhea Code(s): R19.7 - DIARRHEA, UNSPECIFIED (5) Lactic acid acidosis Code(s): E87.2 - ACIDOSIS (6) Acute respiratory failure with hypoxia Code(s): J96.01 - ACUTE RESPIRATORY FAILURE WITH HYPOXIA Assessment/Plan (1) Septic shock Code(s): A41.9 - SEPSIS, UNSPECIFIED ORGANISM; R65.21 - SEVERE SEPSIS WITH SEPTIC SHOCK (2) MARIVEL (acute kidney injury) Code(s): N17.9 - ACUTE KIDNEY FAILURE, UNSPECIFIED (3) Troponin level elevated Code(s): R74.8 - ABNORMAL LEVELS OF OTHER SERUM ENZYMES (4) Diarrhea Code(s): R19.7 - DIARRHEA, UNSPECIFIED (5) Lactic acid acidosis Code(s): E87.2 - ACIDOSIS (6) Acute respiratory failure with hypoxia Code(s): J96.01 - ACUTE RESPIRATORY FAILURE WITH HYPOXIA Plan -continue comfort measures
[2018-07-15] MEDS: PANTOPRAZOLE SODIUM 40 MG VIAL IVPUSH SCH (11:40)
--- NOTE | 2018-07-15 12:14 | PN ---
Progress Note (short form) - Note Progress Note: PULMONARY CHART REVIEWED PATIENT IS ON MORPHINE DRIP COMFORT MEASURES HAVE BEEN DECIDED BY FAMILY AND PRIMARY MD CONTINUE IH NICHOLSON MD
[2018-07-15] MEDS: MORPHINE 100 MG in SODIUM CHLORIDE 98 ML IVPB SCH (15:57)
[2018-07-15] MEDS ORDERED: PT OWN MED DRAWER 7, Y5N ONE ×2 (16:28→20:38)
--- NOTE | 2018-07-16 12:32 | PN ---
Progress Note, Physician Chief Complaint: Obtunded - Current Medication List Current Medications: Active Medications Haloperidol (Haldol Injection (Fast Acting) -) 2 mg IM Q4H PRN PRN Reason: AGITATION Morphine Sulfate 100 mg/ (Sodium Chloride) 100 mls @ 0.5 mls/hr IVPB TITR SAMMY; Protocol Last Admin: 07/15/18 15:57 Dose: 0.5 mg/hr, 0.5 mls/hr Lorazepam (Ativan Injection -) 1 mg IVPUSH Q4H PRN PRN Reason: AGITATION Scopolamine HBr (Transderm-Scop -) 1 patch TD Q72H [facility] Last Admin: 07/14/18 14:37 Dose: 1 patch - Objective Vital Signs: Vital Signs Temperature 37.2 C 07/16/18 09:00 Pulse Rate 93 H 07/16/18 09:00 Respiratory Rate 28 H 07/16/18 09:00 Blood Pressure 104/46 L 07/16/18 09:00 O2 Sat by Pulse Oximetry (%) 99 07/15/18 21:00 Constitutional: Yes: No Distress Respiratory: Yes: Other (shallow breathing) Labs: CBC, BMP 07/14/18 07:50 07/14/18 07:50 INR, PTT INR 1.19 (0.83-1.09) H 07/13/18 00:50 Problem List - Problems (1) Septic shock Code(s): A41.9 - SEPSIS, UNSPECIFIED ORGANISM; R65.21 - SEVERE SEPSIS WITH SEPTIC SHOCK (2) MARIVEL (acute kidney injury) Code(s): N17.9 - ACUTE KIDNEY FAILURE, UNSPECIFIED (3) Troponin level elevated Code(s): R74.8 - ABNORMAL LEVELS OF OTHER SERUM ENZYMES (4) Diarrhea Code(s): R19.7 - DIARRHEA, UNSPECIFIED (5) Lactic acid acidosis Code(s): E87.2 - ACIDOSIS (6) Acute respiratory failure with hypoxia Code(s): J96.01 - ACUTE RESPIRATORY FAILURE WITH HYPOXIA Assessment/Plan (1) Septic shock Code(s): A41.9 - SEPSIS, UNSPECIFIED ORGANISM; R65.21 - SEVERE SEPSIS WITH SEPTIC SHOCK (2) MARIVEL (acute kidney injury) Code(s): N17.9 - ACUTE KIDNEY FAILURE, UNSPECIFIED (3) Troponin level elevated Code(s): R74.8 - ABNORMAL LEVELS OF OTHER SERUM ENZYMES (4) Diarrhea Code(s): R19.7 - DIARRHEA, UNSPECIFIED (5) Lactic acid acidosis Code(s): E87.2 - ACIDOSIS (6) Acute respiratory failure with hypoxia Code(s): J96.01 - ACUTE RESPIRATORY FAILURE WITH HYPOXIA Plan -continue comfort measures
[2018-07-16] MEDS: MORPHINE 100 MG in SODIUM CHLORIDE 98 ML IVPB SCH (14:45)
[2018-07-17] MEDS ORDERED: LORazepam 2 MG/ML SDV VIAL IVPUSH PRN (01:03)
[2018-07-17] MEDS: MORPHINE 100 MG in SODIUM CHLORIDE 98 ML IVPB SCH (01:12)
--- NOTE | 2018-07-17 11:26 | PN ---
Progress Note, Physician Chief Complaint: Obtunded - Current Medication List Current Medications: Active Medications Haloperidol (Haldol Injection (Fast Acting) -) 2 mg IM Q4H PRN PRN Reason: AGITATION Morphine Sulfate 100 mg/ (Sodium Chloride) 100 mls @ 0.5 mls/hr IVPB TITR SAMMY; Protocol Last Admin: 07/17/18 01:12 Dose: 1 mg/hr, 1 mls/hr Lorazepam (Ativan Injection -) 1 mg IVPUSH Q4H PRN PRN Reason: AGITATION Scopolamine HBr (Transderm-Scop -) 1 patch TD Q72H [facility]MY Last Admin: 07/14/18 14:37 Dose: 1 patch - Objective Vital Signs: Vital Signs Temperature 36.6 C 07/17/18 10:08 Pulse Rate 89 07/17/18 10:08 Respiratory Rate 20 07/17/18 10:08 Blood Pressure 77/47 L 07/17/18 10:08 O2 Sat by Pulse Oximetry (%) 100 07/16/18 10:00 Constitutional: Yes: Other (obtunded) Respiratory: Yes: On Venti-Mask, Other (shallow breathing) Labs: CBC, BMP 07/14/18 07:50 07/14/18 07:50 INR, PTT INR 1.19 (0.83-1.09) H 07/13/18 00:50 Problem List - Problems (1) Septic shock Code(s): A41.9 - SEPSIS, UNSPECIFIED ORGANISM; R65.21 - SEVERE SEPSIS WITH SEPTIC SHOCK (2) MARIVEL (acute kidney injury) Code(s): N17.9 - ACUTE KIDNEY FAILURE, UNSPECIFIED (3) Troponin level elevated Code(s): R74.8 - ABNORMAL LEVELS OF OTHER SERUM ENZYMES (4) Diarrhea Code(s): R19.7 - DIARRHEA, UNSPECIFIED (5) Lactic acid acidosis Code(s): E87.2 - ACIDOSIS (6) Acute respiratory failure with hypoxia Code(s): J96.01 - ACUTE RESPIRATORY FAILURE WITH HYPOXIA Assessment/Plan (1) Septic shock Code(s): A41.9 - SEPSIS, UNSPECIFIED ORGANISM; R65.21 - SEVERE SEPSIS WITH SEPTIC SHOCK (2) MARIVEL (acute kidney injury) Code(s): N17.9 - ACUTE KIDNEY FAILURE, UNSPECIFIED (3) Troponin level elevated Code(s): R74.8 - ABNORMAL LEVELS OF OTHER SERUM ENZYMES (4) Diarrhea Code(s): R19.7 - DIARRHEA, UNSPECIFIED (5) Lactic acid acidosis Code(s): E87.2 - ACIDOSIS (6) Acute respiratory failure with hypoxia Code(s): J96.01 - ACUTE RESPIRATORY FAILURE WITH HYPOXIA Plan -continue comfort measures
[2018-07-17] MEDS: SCOPOLAMINE HYDROBROMIDE 1 PATCH PATCH.TD72 TD SCH (13:10)
[2018-07-17] MEDS ORDERED: PT OWN MED DRAWER 7, Y5N ONE (13:10)
--- NOTE | 2018-07-17 13:56 | PN ---
Progress Note (short form) - Note Progress Note: PULMONARY CHART REVIEWED PATIENT IS ON MORPHINE DRIP COMFORT MEASURES HAVE BEEN DECIDED BY FAMILY AND PRIMARY MD CONTINUE HI NICHOLSON MD
[2018-07-18] MEDS: MORPHINE 100 MG in SODIUM CHLORIDE 98 ML IVPB SCH ×2 (00:33→11:18)
--- NOTE | 2018-07-18 12:08 | PN ---
Progress Note (short form) - Note Progress Note: PULMONARY Unresponsive on morphine gtt. Breaths shallow. Vital Signs Period Temp Pulse Resp BP Sys/Marroquin Pulse Ox Last 24 Hr 98.7 F-98.8 F 85-97 18-22 72-108/42-58 100 Gen: unresponsive, relatively comfortable Heart: RRR Lung: decreased air entry Abd: soft, nontender Ext: no edema CBC, BMP 07/14/18 07:50 07/14/18 07:50 Active Medications Haloperidol (Haldol Injection (Fast Acting) -) 2 mg IM Q4H PRN PRN Reason: AGITATION Morphine Sulfate 100 mg/ (Sodium Chloride) 100 mls @ 0.5 mls/hr IVPB TITR SAMMY; Protocol Last Admin: 07/18/18 11:18 Dose: 1.5 mg/hr, 1.5 mls/hr Lorazepam (Ativan Injection -) 1 mg IVPUSH Q4H PRN PRN Reason: AGITATION Scopolamine HBr (Transderm-Scop -) 1 patch TD Q72H [facility] Last Admin: 07/17/18 13:10 Dose: 1 patch A/P Severe Sepsis Decubitus Ulcer Infection Staph Bacteremia Acute Kidney Injury Lactic Acidosis Hyperkalemia +Troponins likely Demand Ischemia Rhabdomyolysis Anemia Dementia Severe Protein Calorie Malnutrition - continue supportive care - titrate morphine for comfort - pt DNR/DNI
--- NOTE | 2018-07-18 15:01 | PN ---
Progress Note, Physician Chief Complaint: pt obtunded - Current Medication List Current Medications: Active Medications Haloperidol (Haldol Injection (Fast Acting) -) 2 mg IM Q4H PRN PRN Reason: AGITATION Morphine Sulfate 100 mg/ (Sodium Chloride) 100 mls @ 0.5 mls/hr IVPB TITR SAMMY; Protocol Last Admin: 07/18/18 11:18 Dose: 1.5 mg/hr, 1.5 mls/hr Lorazepam (Ativan Injection -) 1 mg IVPUSH Q4H PRN PRN Reason: AGITATION Scopolamine HBr (Transderm-Scop -) 1 patch TD Q72H [facility] Last Admin: 07/17/18 13:10 Dose: 1 patch - Objective Vital Signs: Vital Signs Temperature 98.8 F 07/17/18 17:58 Pulse Rate 96 H 07/18/18 13:43 Respiratory Rate 18 07/18/18 09:00 Blood Pressure 104/44 L 07/18/18 13:43 O2 Sat by Pulse Oximetry (%) 100 07/18/18 09:00 Respiratory: Yes: Tachypnea Labs: CBC, BMP 07/14/18 07:50 07/14/18 07:50 INR, PTT INR 1.19 (0.83-1.09) H 07/13/18 00:50 Assessment/Plan (1) Septic shock Code(s): A41.9 - SEPSIS, UNSPECIFIED ORGANISM; R65.21 - SEVERE SEPSIS WITH SEPTIC SHOCK (2) MARIVEL (acute kidney injury) Code(s): N17.9 - ACUTE KIDNEY FAILURE, UNSPECIFIED (3) Troponin level elevated Code(s): R74.8 - ABNORMAL LEVELS OF OTHER SERUM ENZYMES (4) Diarrhea Code(s): R19.7 - DIARRHEA, UNSPECIFIED (5) Lactic acid acidosis Code(s): E87.2 - ACIDOSIS (6) Acute respiratory failure with hypoxia Code(s): J96.01 - ACUTE RESPIRATORY FAILURE WITH HYPOXIA continue comfort measures titrate morphine drip for comfortable breathing
[2018-07-19] MEDS: MORPHINE 100 MG in SODIUM CHLORIDE 98 ML IVPB SCH ×2 (01:01→12:00)
--- NOTE | 2018-07-19 11:19 | PN ---
Progress Note, Physician Chief Complaint: pt obtunded - Current Medication List Current Medications: Active Medications Haloperidol (Haldol Injection (Fast Acting) -) 2 mg IM Q4H PRN PRN Reason: AGITATION Morphine Sulfate 100 mg/ (Sodium Chloride) 100 mls @ 0.5 mls/hr IVPB TITR SAMMY; Protocol Last Admin: 07/19/18 01:01 Dose: 1.5 mg/hr, 1.5 mls/hr Lorazepam (Ativan Injection -) 1 mg IVPUSH Q4H PRN PRN Reason: AGITATION Scopolamine HBr (Transderm-Scop -) 1 patch TD Q72H SAMMY Last Admin: 07/17/18 13:10 Dose: 1 patch - Objective Vital Signs: Vital Signs Temperature 98.0 F 07/19/18 10:00 Pulse Rate 98 H 07/19/18 10:00 Respiratory Rate 18 07/19/18 10:00 Blood Pressure 81/43 L 07/19/18 10:00 O2 Sat by Pulse Oximetry (%) 100 07/18/18 21:00 Respiratory: Yes: Other (labored) Neurological: Yes: Lethargy Labs: CBC, BMP 07/14/18 07:50 07/14/18 07:50 INR, PTT INR 1.19 (0.83-1.09) H 07/13/18 00:50 Assessment/Plan (1) Septic shock Code(s): A41.9 - SEPSIS, UNSPECIFIED ORGANISM; R65.21 - SEVERE SEPSIS WITH SEPTIC SHOCK (2) MARIVEL (acute kidney injury) Code(s): N17.9 - ACUTE KIDNEY FAILURE, UNSPECIFIED (3) Troponin level elevated Code(s): R74.8 - ABNORMAL LEVELS OF OTHER SERUM ENZYMES (4) Diarrhea Code(s): R19.7 - DIARRHEA, UNSPECIFIED (5) Lactic acid acidosis Code(s): E87.2 - ACIDOSIS (6) Acute respiratory failure with hypoxia Code(s): J96.01 - ACUTE RESPIRATORY FAILURE WITH HYPOXIA continue comfort measures titrate morphine drip for comfortable breathing
[2018-07-20] MEDS: MORPHINE 100 MG in SODIUM CHLORIDE 98 ML IVPB SCH (00:48)
--- NOTE | 2018-07-20 10:12 | PN ---
Progress Note, Physician Chief Complaint: pt obtunded - Current Medication List Current Medications: Active Medications Haloperidol (Haldol Injection (Fast Acting) -) 2 mg IM Q4H PRN PRN Reason: AGITATION Morphine Sulfate 100 mg/ (Sodium Chloride) 100 mls @ 0.5 mls/hr IVPB TITR SAMMY; Protocol Last Admin: 07/20/18 00:48 Dose: 2 mg/hr, 2 mls/hr Lorazepam (Ativan Injection -) 1 mg IVPUSH Q4H PRN PRN Reason: AGITATION Scopolamine HBr (Transderm-Scop -) 1 patch TD Q72H SAMMY Last Admin: 07/17/18 13:10 Dose: 1 patch - Objective Vital Signs: Vital Signs Temperature 99.7 F H 07/20/18 06:00 Pulse Rate 91 H 07/20/18 06:00 Respiratory Rate 18 07/19/18 10:00 Blood Pressure 61/33 L 07/20/18 06:00 O2 Sat by Pulse Oximetry (%) 95 07/19/18 21:00 Respiratory: Yes: Other (labored) Genitourinary: Yes: Dozier Present Neurological: Yes: Lethargy Labs: CBC, BMP 07/14/18 07:50 07/14/18 07:50 INR, PTT INR 1.19 (0.83-1.09) H 07/13/18 00:50 Assessment/Plan (1) Septic shock Code(s): A41.9 - SEPSIS, UNSPECIFIED ORGANISM; R65.21 - SEVERE SEPSIS WITH SEPTIC SHOCK (2) MARIVEL (acute kidney injury) Code(s): N17.9 - ACUTE KIDNEY FAILURE, UNSPECIFIED (3) Troponin level elevated Code(s): R74.8 - ABNORMAL LEVELS OF OTHER SERUM ENZYMES (4) Diarrhea Code(s): R19.7 - DIARRHEA, UNSPECIFIED (5) Lactic acid acidosis Code(s): E87.2 - ACIDOSIS (6) Acute respiratory failure with hypoxia Code(s): J96.01 - ACUTE RESPIRATORY FAILURE WITH HYPOXIA continue comfort measures titrate morphine drip for comfortable breathing
[2018-07-20] MEDS ORDERED: PT OWN MED DRAWER 7, Y5N ONE (12:12)
[2018-07-20] MEDS: SCOPOLAMINE HYDROBROMIDE 1 PATCH PATCH.TD72 TD SCH (12:16)
[2018-07-21] MEDS: MORPHINE 100 MG in SODIUM CHLORIDE 98 ML IVPB SCH ×3 (03:07→12:28)
--- NOTE | 2018-07-21 09:26 | PN ---
Progress Note, Physician Chief Complaint: pt obtunded - Current Medication List Current Medications: Active Medications Haloperidol (Haldol Injection (Fast Acting) -) 2 mg IM Q4H PRN PRN Reason: AGITATION Morphine Sulfate 100 mg/ (Sodium Chloride) 100 mls @ 0.5 mls/hr IVPB TITR SAMMY; Protocol Last Admin: 07/21/18 03:07 Dose: 2.5 mg/hr, 2.5 mls/hr Lorazepam (Ativan Injection -) 1 mg IVPUSH Q4H PRN PRN Reason: AGITATION Scopolamine HBr (Transderm-Scop -) 1 patch TD Q72H SAMMY Last Admin: 07/20/18 12:16 Dose: 1 patch - Objective Vital Signs: Vital Signs Temperature 99.8 F H 07/21/18 06:47 Pulse Rate 83 07/21/18 06:47 Respiratory Rate 20 07/21/18 06:47 Blood Pressure 57/32 L 07/21/18 06:47 O2 Sat by Pulse Oximetry (%) 92 L 07/20/18 09:00 Respiratory: Yes: On Nasal O2, Tachypnea Genitourinary: Yes: Dozier Present Neurological: Yes: Lethargy Labs: CBC, BMP 07/14/18 07:50 07/14/18 07:50 INR, PTT INR 1.19 (0.83-1.09) H 07/13/18 00:50 Assessment/Plan (1) Septic shock Code(s): A41.9 - SEPSIS, UNSPECIFIED ORGANISM; R65.21 - SEVERE SEPSIS WITH SEPTIC SHOCK (2) MARIVEL (acute kidney injury) Code(s): N17.9 - ACUTE KIDNEY FAILURE, UNSPECIFIED (3) Troponin level elevated Code(s): R74.8 - ABNORMAL LEVELS OF OTHER SERUM ENZYMES (4) Diarrhea Code(s): R19.7 - DIARRHEA, UNSPECIFIED (5) Lactic acid acidosis Code(s): E87.2 - ACIDOSIS (6) Acute respiratory failure with hypoxia Code(s): J96.01 - ACUTE RESPIRATORY FAILURE WITH HYPOXIA continue comfort measures titrate morphine drip for comfortable breathing
[2018-07-21 09:56] VITALS: TEMP 98.1
[2018-07-21 12:31] VITALS: BP 104/50; PULSE 90
--- NOTE | 2018-07-21 14:41 | PN ---
Progress Note, Physician - Current Medication List Current Medications: Active Medications Haloperidol (Haldol Injection (Fast Acting) -) 2 mg IM Q4H PRN PRN Reason: AGITATION Morphine Sulfate 100 mg/ (Sodium Chloride) 100 mls @ 0.5 mls/hr IVPB TITR SAMMY; Protocol Last Admin: 07/21/18 12:28 Dose: 3.5 mg/hr, 3.5 mls/hr Lorazepam (Ativan Injection -) 1 mg IVPUSH Q4H PRN PRN Reason: AGITATION Last Admin: 07/21/18 13:11 Dose: 1 mg Scopolamine HBr (Transderm-Scop -) 1 patch TD Q72H SAMMY Last Admin: 07/20/18 12:16 Dose: 1 patch - Objective Vital Signs: Vital Signs Temperature 98.1 F 07/21/18 09:55 Pulse Rate 90 07/21/18 12:25 Respiratory Rate 32 H 07/21/18 13:10 Blood Pressure 104/50 L 07/21/18 12:25 O2 Sat by Pulse Oximetry (%) 92 L 07/20/18 09:00 Cardiovascular: Yes: Other (absent) Respiratory: Yes: Other (absent) Extremities: Yes: Cold, Pallor Neurological: Yes: Unresponsive Labs: CBC, BMP 07/14/18 07:50 07/14/18 07:50 INR, PTT INR 1.19 (0.83-1.09) H 07/13/18 00:50 Assessment/Plan Informed by RN pt has stopped breathing. Pt non responsive, without spontaneous breathing, lung/heart sounds absent. Time of called @ 1430. was comfortable during his last hours. Grandcharli Kenney and PCP informed.
== END 2018-07-21 14:35 | disposition expired | DRG 871 ==
LOC: JER 23:22 → JERBED 07-13 04:03 → UNDOADMIN 07-13 04:43 → JERBED 07-13 04:43 → J5S 07-13 22:36
PROVIDERS: ADMIT Internal Medicine; ATTEND Internal Medicine
DX: A41.9 Sepsis, unspecified organism (principal); R65.21 Severe sepsis with septic shock; J96.01 Acute respiratory failure with hypoxia; E43 Unspecified severe protein-calorie malnutrition; E87.2 Acidosis; N17.9 Acute kidney failure, unspecified; M62.82 Rhabdomyolysis; Z68.1 Body mass index [BMI] 19.9 or less, adult; R64 Cachexia; I24.8 Other forms of acute ischemic heart disease; I10 Essential (primary) hypertension; F03.90 Unspecified dementia, unspecified severity, without behavioral disturbance, psychotic disturbance, mood disturbance, and anxiety; E88.09 Other disorders of plasma-protein metabolism, not elsewhere classified; R19.7 Diarrhea, unspecified; R74.8 Abnormal levels of other serum enzymes; E87.5 Hyperkalemia; D64.9 Anemia, unspecified; R41.82 Altered mental status, unspecified; R62.7 Adult failure to thrive; R31.9 Hematuria, unspecified; I95.9 Hypotension, unspecified; E03.9 Hypothyroidism, unspecified
CPT/HCPCS: 36415; 70450-TC; 71045-TC-FY; 71250-TC; 74176-TC; 80048; 80053; 81003; 81015; 82550; 82553; 82607; 82803; 83605; 83735; 83930; 83935; 84100; 84134; 84207; 84484; 85025; 85610; 85651; 85730; 86140; 87040; 87070; 87086; 87186; 93306-TC; 99284-25; J1644; J7030